=== PATIENT | male | born 1945 | race Caucasian/White ===

== ENCOUNTER → 2020-09-05 10:15 | Outpatient (CLI) | payer MEDICARE, SELFPAY ==
[2020-09-05 10:24] LABS: Chloride 99 mmol/L (98-107); Potassium 4.9 mmoL/L (3.5-5.1); Sodium 139 mmol/L (136-145)
[2020-09-05 10:26] LABS: Basophils # 0.1 K/mm3 (0-0.2); Basophils % 0.6 % (0.1-2.0); Eosinophils # 1.7 K/mm3 (0.0-0.4); Eosinophils % 20.6 % (0.1-12.0); Hemoglobin 11.8 g/dL (14.1-18.0); Lymphocytes # 1.1 K/mm3 (0.7-4.5); Lymphocytes % 13.4 % (10-50); Mean Corpuscular HGB Conc 31.8 g/dL (31.8-35.4); Mean Corpuscular Hemoglobin 29.7 pg (27.0-31.2); Mean Corpuscular Volume 93.4 fl (80-94); Mean Platelet Volume 7.5 fl (7.4-10.4); Monocytes # 0.6 K/mm3 (0.1-1.0); Monocytes % 6.9 % (1.7-9.3); Neutrophils # 4.9 K/mm3 (1.8-7.8); Neutrophils % 58.5 % (37.0-80.0); Platelet Count 184 K/mm3 (142-424); Red Blood Count 3.96 M/mm3 (4.60-6.20); Red Cell Distribution Width 15.1 % (11.5-17.5); White Blood Count 8.3 K/mm3 (4.8-10.8)
[2020-09-05 10:27] LABS: Alanine Aminotransferase 23 U/L (12-78); Albumin/Globulin Ratio 1.1 (1.1-1.8); Alkaline Phosphatase 100 U/L (38-126); Anion Gap 8.9 mEq/L (5-15); Aspartate Amino Transferase 26 U/L (17-59); Bilirubin,Total 0.4 mg/dl (0.2-1.3); Blood Urea Nitrogen 37 mg/dl (9-20); Calcium 9.7 mg/dl (8.4-10.2); Carbon Dioxide 36 mmol/L (22.0-30.0); Estimated Glomerular Filt Rate 49 ml/min (>60); GFR (African American) 60 ML/MIN (>60); Globulin 3.8 g/dL (1.3-3.2); Glucose 113 mg/dl (74-100); Total Protein,Serum 7.8 g/dl (6.3-8.2)
--- NOTE | 2020-09-05 10:40 | CT_ITS ---
PROCEDURE: CT ANGIO CHEST CLINCIAL INDICATION: r/o PE Emphysema, shortness of air COMPARISON: No exams were available for comparison TECHNIQUE: IV Contrast: 70ML Isovue 370 Axial images obtained with sagittal and coronal reformats. All CT scans at the facility use one or more dose reduction, viz: automated exposure control, ma/kV adjustment per patient size (including targeted exams where dose is matched to indication, i.e. head), or iterative reconstruction technique. FINDINGS: No mediastinal or hilar mass or adenopathy. No evidence of pulmonary embolus, aortic aneurysm, or aortic dissection.. Atheromatous calcification involves the thoracic aorta with mild tortuosity. No aneurysm or dissection. COPD changes with centrilobular emphysema and scattered areas of scarring. There is bronchial thickening. A 4 mm noncalcified nodules present in the right lower lobe posteriorly image 81. Atelectatic changes are present in the right middle lobe. Thickening of the right minor fissure noted. Small pneumatocele present in the right middle lobe anteriorly at 2 x 0.9 x 0.5 cm. No lobar consolidation or collapse. No central obstructing lesions. There is a 2 cm hypodensity in the right hepatic lobe just medial to the gallbladder fossa and may represent a hepatic cyst. Incidental note is made of gynecomastia. There is mild dilatation of the abdominal aorta incompletely imaged measuring at least 3.2 cm transverse with mild amount of mural thrombus. This is in the infrarenal region. Wedge compression changes involve T8 and T7 with loss of height anteriorly of 30 percent age indeterminate. IMPRESSION: 1. No evidence of pulmonary embolus. 2. COPD with centrilobular emphysema with scattered areas of atelectasis and/or scarring and bronchial thickening. 4 mm noncalcified nodule right lower lobe. 3. Incompletely imaged infrarenal abdominal aortic aneurysm at least 3.2 cm transverse 4. Mild wedge compression changes of T7 and T8 age indeterminate Dictated by: Wally Hernandez MD 09/05/2020 12:56 Wally Hernandez MD in [facility] 09/05/2020 12:56
[2020-09-05 10:44] LABS: Hemoglobin A1C 5.8 % (4.0-6.0)
[2020-09-05 10:45] LABS: Chol/HDL Ratio 5.6 (1-3.5); Cholesterol 207 mg/dl (140-200); HDL Cholesterol 37 mg/dl (40-60); Triglycerides 277 mg/dl (30-150); VLDL Cholesterol 55 mg/dL (0-40)
[2020-09-05 10:55] LABS: Direct LDL Cholesterol 105.27 mg/dL (100-129)
[2020-09-05 11:37] LABS: T4 (Thyroxine) 9.6 ug/dl (5.53-11.0)
[2020-09-05 11:50] LABS: Prostate Specific Ag Screen 2.1 ng/ml (0.0-4.0); Thyroid Stimulating Hormone 4.57 uIU/mL (0.465-4.68)
[2020-09-12 11:33] LABS: Testosterone, Total, LC/MS 230.3 ng/dL (264.0-916.0); Testosterone,Free 3.1 pg/mL (6.6-18.1)
== END ==
LOC: LAB.DROPOF 10:15 → RAD 10:38
PROVIDERS: PCP Family Medicine; Visit Provider Family Medicine
DX: R06.00 Dyspnea, unspecified (principal); R60.0 Localized edema; E78.5 Hyperlipidemia, unspecified; E11.9 Type 2 diabetes mellitus without complications; Z12.5 Encounter for screening for malignant neoplasm of prostate
CPT/HCPCS: 71275; 80053; 80061; 83036; 84402; 84403; 84436; 84443; 85025; G0103; Q9967

== ENCOUNTER → 2020-09-11 14:35 | Outpatient (CLI) | payer MEDICARE, SELFPAY ==
[2020-09-11 16:06] LABS: Chloride 98 mmol/L (98-107); Sodium 141 mmol/L (136-145)
[2020-09-11 16:07] LABS: Basophils # 0.1 K/mm3 (0-0.2); Basophils % 0.8 % (0.1-2.0); Eosinophils % 21.6 % (0.1-12.0); Hematocrit 36.3 % (42.0-52.0); Hemoglobin 11.6 g/dL (14.1-18.0); Lymphocytes # 1.1 K/mm3 (0.7-4.5); Lymphocytes % 11.8 % (10-50); Mean Corpuscular Hemoglobin 29.3 pg (27.0-31.2); Mean Corpuscular Volume 91.7 fl (80-94); Mean Platelet Volume 9.4 fl (7.4-10.4); Monocytes # 0.7 K/mm3 (0.1-1.0); Monocytes % 7.4 % (1.7-9.3); Neutrophils # 5.5 K/mm3 (1.8-7.8); Neutrophils % 58.4 % (37.0-80.0); Platelet Count 202 K/mm3 (142-424); Potassium 4.6 mmoL/L (3.5-5.1); Red Blood Count 3.95 M/mm3 (4.60-6.20); Red Cell Distribution Width 15.2 % (11.5-17.5); White Blood Count 9.4 K/mm3 (4.8-10.8)
[2020-09-11 16:09] LABS: Alanine Aminotransferase 22 U/L (12-78); Albumin Level 4.1 g/dl (3.5-5.0); Albumin/Globulin Ratio 1.1 (1.1-1.8); Alkaline Phosphatase 93 U/L (38-126); Anion Gap 10.6 mEq/L (5-15); Aspartate Amino Transferase 25 U/L (17-59); Bilirubin,Total 0.4 mg/dl (0.2-1.3); Blood Urea Nitrogen 67 mg/dl (9-20); Carbon Dioxide 37 mmol/L (22.0-30.0); Cholesterol 223 mg/dl (140-200); Estimated Glomerular Filt Rate 29 ml/min (>60); GFR (African American) 35 ML/MIN (>60); Globulin 3.7 g/dL (1.3-3.2); Total Protein,Serum 7.8 g/dl (6.3-8.2); Triglycerides 268 mg/dl (30-150); VLDL Cholesterol 54 mg/dL (0-40)
[2020-09-11 16:10] LABS: Calcium 9.7 mg/dl (8.4-10.2); Glucose 119 mg/dl (74-100); HDL Cholesterol 43 mg/dl (40-60)
[2020-09-11 16:20] LABS: NT Pro Brain Natriuretic Pep. 121 pg/mL (0-450)
[2020-09-11 16:40] LABS: Thyroid Stimulating Hormone 6.13 uIU/mL (0.465-4.68)
[2020-09-11 19:13] LABS: Chol/HDL Ratio 5.2 (1-3.5)
== END ==
PROVIDERS: Visit Provider Family Medicine
DX: I50.9 Heart failure, unspecified (principal)
CPT/HCPCS: 80053; 80061; 83880; 84436; 84443; 85025

== ENCOUNTER → 2020-10-23 13:50 | Outpatient (CLI) | payer MEDICARE, SELFPAY ==
[2020-10-23 14:04] LABS: Chloride 100 mmol/L (98-107); Sodium 139 mmol/L (136-145)
[2020-10-23 14:05] LABS: Potassium 4.6 mmoL/L (3.5-5.1)
[2020-10-23 14:07] LABS: Alanine Aminotransferase 22 U/L (12-78); Albumin Level 3.9 g/dl (3.5-5.0); Albumin/Globulin Ratio 1.1 (1.1-1.8); Alkaline Phosphatase 96 U/L (38-126); Anion Gap 12.6 mEq/L (5-15); Aspartate Amino Transferase 25 U/L (17-59); Bilirubin,Total 0.6 mg/dl (0.2-1.3); Blood Urea Nitrogen 42 mg/dl (9-20); Calcium 9.5 mg/dl (8.4-10.2); Carbon Dioxide 31 mmol/L (22.0-30.0); Estimated Glomerular Filt Rate 46 ml/min (>60); GFR (African American) 55 ML/MIN (>60); Globulin 3.5 g/dL (1.3-3.2); Glucose 111 mg/dl (74-100); Total Protein,Serum 7.4 g/dl (6.3-8.2)
== END ==
PROVIDERS: Visit Provider Family Medicine
DX: N28.9 Disorder of kidney and ureter, unspecified (principal)
CPT/HCPCS: 80053

== ENCOUNTER → 2020-12-01 14:35 | Outpatient (CLI) | payer MEDICARE, SELFPAY ==
[2020-12-01 14:46] LABS: Basophils # 0.1 K/mm3 (0-0.2); Basophils % 0.7 % (0.1-2.0); Eosinophils # 1.1 K/mm3 (0.0-0.4); Eosinophils % 13.9 % (0.1-12.0); Hematocrit 35.1 % (42.0-52.0); Hemoglobin 11.4 g/dL (14.1-18.0); Lymphocytes # 0.8 K/mm3 (0.7-4.5); Lymphocytes % 9.5 % (10-50); Mean Corpuscular HGB Conc 32.5 g/dL (31.8-35.4); Mean Corpuscular Hemoglobin 29.4 pg (27.0-31.2); Mean Corpuscular Volume 90.4 fl (80-94); Mean Platelet Volume 8.6 fl (7.4-10.4); Monocytes # 0.5 K/mm3 (0.1-1.0); Monocytes % 6.4 % (1.7-9.3); Neutrophils # 5.5 K/mm3 (1.8-7.8); Neutrophils % 69.5 % (37.0-80.0); Platelet Count 176 K/mm3 (142-424); Red Blood Count 3.88 M/mm3 (4.60-6.20); Red Cell Distribution Width 15.7 % (11.5-17.5); White Blood Count 7.9 K/mm3 (4.8-10.8)
[2020-12-01 14:55] LABS: Alanine Aminotransferase 17 U/L (12-78); Albumin/Globulin Ratio 1.3 (1.1-1.8); Alkaline Phosphatase 76 U/L (38-126); Anion Gap 9.9 mEq/L (5-15); Aspartate Amino Transferase 19 U/L (17-59); Bilirubin,Total 0.5 mg/dl (0.2-1.3); Blood Urea Nitrogen 68 mg/dl (9-20); Calcium 8.8 mg/dl (8.4-10.2); Carbon Dioxide 34 mmol/L (22.0-30.0); Chloride 95 mmol/L (98-107); Estimated Glomerular Filt Rate 24 ml/min (>60); GFR (African American) 29 ML/MIN (>60); Globulin 3.1 g/dL (1.3-3.2); Glucose 106 mg/dl (74-100); Potassium 5.9 mmoL/L (3.5-5.1); Sodium 133 mmol/L (136-145); Total Protein,Serum 7.1 g/dl (6.3-8.2)
[2020-12-01 15:25] LABS: Thyroid Stimulating Hormone 2.91 uIU/mL (0.465-4.68)
== END ==
PROVIDERS: Visit Provider Family Medicine
DX: R60.9 Edema, unspecified (principal); I71.9 Aortic aneurysm of unspecified site, without rupture
CPT/HCPCS: 80053; 84443; 85025

== ENCOUNTER → 2021-03-16 17:22 | Outpatient (CLI) | payer MEDICARE, SELFPAY ==
[2021-03-16 19:06] LABS: Chloride 97 mmol/L (98-107); Potassium 5.4 mmoL/L (3.5-5.1); Sodium 135 mmol/L (136-145)
[2021-03-16 19:09] LABS: Alanine Aminotransferase 20 U/L (12-78); Albumin Level 3.9 g/dl (3.5-5.0); Albumin/Globulin Ratio 1.1 (1.1-1.8); Alkaline Phosphatase 86 U/L (38-126); Anion Gap 13.4 mEq/L (5-15); Aspartate Amino Transferase 22 U/L (17-59); Bilirubin,Total 0.3 mg/dl (0.2-1.3); Blood Urea Nitrogen 22 mg/dl (9-20); Carbon Dioxide 30 mmol/L (22.0-30.0); Estimated Glomerular Filt Rate 49 ml/min (>60); GFR (African American) 60 ML/MIN (>60); Globulin 3.5 g/dL (1.3-3.2); Total Protein,Serum 7.4 g/dl (6.3-8.2)
[2021-03-16 19:10] LABS: Calcium 9.1 mg/dl (8.4-10.2); Glucose 90 mg/dl (74-100)
[2021-03-16 19:39] LABS: Thyroid Stimulating Hormone 1.37 uIU/mL (0.465-4.68)
== END ==
PROVIDERS: Visit Provider Family Medicine
DX: R60.9 Edema, unspecified (principal); R60.0 Localized edema
CPT/HCPCS: 80053; 84443

== ENCOUNTER → 2021-04-13 13:47 | Outpatient (CLI) | payer MEDICARE, SELFPAY ==
[2021-04-13 14:12] LABS: Chloride 99 mmol/L (98-107); Sodium 138 mmol/L (136-145)
[2021-04-13 14:13] LABS: Potassium 5.9 mmoL/L (3.5-5.1)
[2021-04-13 14:15] LABS: Alanine Aminotransferase 24 U/L (12-78); Anion Gap 17.9 mEq/L (5-15); Aspartate Amino Transferase 28 U/L (17-59); Bilirubin,Total 0.5 mg/dl (0.2-1.3); Blood Urea Nitrogen 63 mg/dl (9-20); Carbon Dioxide 27 mmol/L (22.0-30.0); Estimated Glomerular Filt Rate 24 ml/min (>60); GFR (African American) 29 ML/MIN (>60)
[2021-04-13 14:16] LABS: Albumin Level 4.2 g/dl (3.5-5.0); Albumin/Globulin Ratio 1.2 (1.1-1.8); Alkaline Phosphatase 86 U/L (38-126); Calcium 9.2 mg/dl (8.4-10.2); Globulin 3.6 g/dL (1.3-3.2); Glucose 101 mg/dl (74-100); Total Protein,Serum 7.8 g/dl (6.3-8.2)
== END ==
PROVIDERS: Visit Provider Family Medicine
DX: R60.1 Generalized edema (principal)
CPT/HCPCS: 80053

== ENCOUNTER → 2021-06-26 12:46 | Outpatient (CLI) | payer MEDICARE, SELFPAY | PROVIDERS: Visit Provider Family Medicine | DX: B96.5 Pseudomonas (aeruginosa) (mallei) (pseudomallei) as the cause of diseases classified elsewhere; M54.50 Low back pain, unspecified; R82.90 Unspecified abnormal findings in urine | CPT/HCPCS: 87086; 87088; 87186 ==

== ENCOUNTER → 2021-07-02 09:39 | Outpatient (CLI) | payer MEDICARE, SELFPAY ==
--- NOTE | 2021-07-02 09:50 | XR_ITS ---
PROCEDURE: XR CHEST 2V CLINICAL HISTORY: pain COMPARISON: CT CT ANGIO CHEST from 09/05/2020 FINDINGS: The cardiomediastinal silhouette and pulmonary vascularity are within normal limits. COPD with scattered areas of scarring. No lobar consolidation or collapse. Chronic wedge compression changes are present T7 and T8. New central wedge compression changes are present at T9. IMPRESSION: COPD. Scattered areas of scarring. New area wedge compression change of T9 which has developed since 09/05/2020 with chronic wedge compression changes of T7 and T8 Dictated by: Wally Hernandez MD 07/02/2021 17:12 Wally Hernandez MD in [facility] 07/02/2021 17:12
--- NOTE | 2021-07-02 09:50 | XR_ITS ---
PROCEDURE: XR THORACIC SPINE 2V CLINICAL INDICATION: back pain COMPARISON: CT CT ANGIO CHEST from 09/05/2020 FINDINGS: Minimal upper thoracic curvature convex right. There is minimal anterior wedging of T7 and T8 vertebral body which appears old. Mild central wedge compression fractures are present at T9 which were not present on 09/05/2020. There is normal alignment. No lytic or blastic change. IMPRESSION: Chronic compression changes T7 and T8 with new compression changes at T9. No obvious retropulsion the the Dictated by: Wally Hernandez MD 07/02/2021 17:06 Wally Hernandez MD in [facility] 07/02/2021 17:06
--- NOTE | 2021-07-02 09:50 | XR_ITS ---
PROCEDURE: XR LUMBAR SPINE 2-3V CLINICAL INDICATION: back pain COMPARISON: CT CT ANGIO CHEST from 09/05/2020 FINDINGS: Generalized osteopenia. Approximately 30 percent wedge compression changes involving the L2 vertebral body which did appear to be present on an older chest CT. Degenerative disc disease L2-L3, L3-L4 and L5-S1. Anterior osteophytes are present. 7 mm anterolisthesis of L5 on S1. Diffuse vascular calcification. IMPRESSION: Degenerative changes. A wedge compression changes of L2. Dictated by: Wally Hernandez MD 07/02/2021 11:09 Wally Hernandez MD in [facility] 07/02/2021 11:09
--- NOTE | 2021-07-02 09:50 | US_ITS ---
PROCEDURE: US AORTA CLINICAL INDICATION: abdominal aortic aneurysm COMPARISON: CT CT ANGIO CHEST from 09/05/2020 FINDINGS: The study is very limited technically due to patient's body habitus. The aorta is poorly demonstrated measuring up to 2.7 cm in AP dimension. Transverse dimension is approximately 3 cm. Proximal common iliacs are unremarkable. IMPRESSION: Very limited technically due to patient's body habitus. Mild ectasia of the abdominal aorta. CT would provide more thorough evaluation Dictated by: Wally Hernandez MD 07/02/2021 16:42 Wally Hernandez MD in [facility] 07/02/2021 16:42
== END ==
PROVIDERS: PCP Family Medicine; Visit Provider Family Medicine
DX: M54.9 Dorsalgia, unspecified (principal); I71.9 Aortic aneurysm of unspecified site, without rupture; M54.6 Pain in thoracic spine; M54.50 Low back pain, unspecified
CPT/HCPCS: 71046; 72070; 72100; 76770

== ENCOUNTER → 2021-07-27 17:01 | Outpatient (CLI) | payer MEDICARE, SELFPAY | PROVIDERS: Visit Provider Family Medicine | DX: R52 Pain, unspecified (principal); L03.313 Cellulitis of chest wall | CPT/HCPCS: 87070; 87205 ==

== ENCOUNTER 2021-08-06 08:25 | Outpatient (RCR) | payer MEDICARE, SELFPAY ==
--- NOTE | 2021-08-06 10:02 | [facility].PTOPWND ---
Rehab Outpt Wound Evaluation Rehab OP Wound Evaluation Start: 08/06/21 09:49 Freq: Status: Active Protocol: Document 08/06/21 09:49 CHELY (Rec: 08/06/21 10:02 CHELY [id number]) Electronically Signed By Hugh Thomas, PT 08/06/21 09:49 Subjective/History History History This is the initial wound care evaluation for Matt Umanzor. Pt is a 76 y/o male referred to wound care for non-healing R anterior chest wound. Pt reports he was hospitalized from 07/04/21 to 07/14/21 due to carbondioxide retention and AMS. Pt's reports after pt came home she noticed irritation on anterior R chest . Pt states they went to doctor and was told it was a staph infection Pt states he was given ABX for treatment. Subjective Subjective Pt states he is receiving home health services and therefore is not eligible for outpatient treatment Wound Eval Wound Right Upper Anterior Chest Wound Type Abrasion Is This a Chronic Wound Yes Wound Length (cm) 3 Wound Width (cm) 5 Wound Bed Appearance Beefy Red,Yellow Percentage Granulated (%) 50 Percentage of Slough (%) 50 Percentage of Eschar (Yellow) (%) 50 Primary Dressing Silver Dressing Comment tegederm ag mesh Wound Secondary Dressing Type Absorbant Pad Comment optifoam SA Wound Debridement Method Gauze,Mechanical Wound Debridement Amount of Tissue Minimal Removed Wound Debridement Result Stopped Due to Bleeding Dressing Change Date 08/06/21 Dressing Change Patient Tolerance Tolerated Well Wound Problems/Impairments Impairments Problems/Impairmments Wound Care Needs,Impaired Self Care/Self Management Prognosis Rehab Potential Good Clinical Impression Consistent with Diagnosis Yes Short Term Goals Number of Weeks 1 Patient to be Ind w/ Home Wound Care/ Yes: Pt given home supplies Dressing Changes Outpatient Therapy Plan of Care Treatment Plan May Include Wound Care Yes Frequency Times per week 1 Duration Number of Weeks 1 Addendums This patient is a candidate for social No or v
== END 2021-08-06 08:30 | disposition home or self-care (01) ==
LOC: PT 08:25
PROVIDERS: PCP Family Medicine; Visit Provider Family Medicine
DX: L03.313 Cellulitis of chest wall (principal)
CPT/HCPCS: 97162

== ENCOUNTER → 2021-12-21 14:17 | Outpatient (CLI) | payer MEDICARE, SELFPAY ==
[2021-12-21 14:14] LABS: Basophils # 0.1 K/mm3 (0-0.2); Basophils % 1.2 % (0.1-2.0); Eosinophils # 0.5 K/mm3 (0.0-0.4); Eosinophils % 8.9 % (0.1-12.0); Hematocrit 39.3 % (42.0-52.0); Hemoglobin 12.6 g/dL (14.1-18.0); Lymphocytes # 0.5 K/mm3 (0.7-4.5); Lymphocytes % 8.8 % (10-50); Mean Corpuscular HGB Conc 31.9 g/dL (31.8-35.4); Mean Corpuscular Volume 87.9 fl (80-94); Mean Platelet Volume 9.9 fl (7.4-10.4); Monocytes # 0.5 K/mm3 (0.1-1.0); Monocytes % 8.1 % (1.7-9.3); Neutrophils # 4.2 K/mm3 (1.8-7.8); Platelet Count 205 K/mm3 (142-424); Red Blood Count 4.48 M/mm3 (4.60-6.20); Red Cell Distribution Width 17.1 % (11.5-17.5); White Blood Count 5.8 K/mm3 (4.8-10.8)
[2021-12-21 14:21] LABS: Alanine Aminotransferase 370 U/L (12-78); Albumin Level 3.7 g/dl (3.5-5.0); Albumin/Globulin Ratio 1.1 (1.1-1.8); Alkaline Phosphatase 123 U/L (38-126); Anion Gap 10.6 mEq/L (5-15); Aspartate Amino Transferase 304 U/L (17-59); Bilirubin,Total 0.6 mg/dl (0.2-1.3); Blood Urea Nitrogen 42 mg/dl (9-20); Carbon Dioxide 33 mmol/L (22.0-30.0); Chloride 99 mmol/L (98-107); Estimated Glomerular Filt Rate 31 ml/min (>60); GFR (African American) 37 ML/MIN (>60); Globulin 3.3 g/dL (1.3-3.2); Glucose 107 mg/dl (74-100); Potassium 3.6 mmoL/L (3.5-5.1); Sodium 139 mmol/L (136-145)
[2021-12-21 14:37] LABS: T4 (Thyroxine) 22.8 ug/dl (5.53-11.0)
[2021-12-21 14:50] LABS: Prostate Specific Ag Screen 2.9 ng/ml (0.0-4.0); Thyroid Stimulating Hormone 0.37 uIU/mL (0.465-4.68)
[2021-12-21 17:06] LABS: 25-OH Vitamin D, Total 24.6 ng/mL (30-100)
[2021-12-21 17:08] LABS: Hemoglobin A1C 5.7 % (4.0-6.0)
[2021-12-24 14:36] LABS: C-Peptide 5.2 ng/mL (1.1-4.4)
== END ==
PROVIDERS: Visit Provider Family Medicine
DX: Z00.00 Encounter for general adult medical examination without abnormal findings (principal); R60.9 Edema, unspecified; I71.9 Aortic aneurysm of unspecified site, without rupture; Z12.5 Encounter for screening for malignant neoplasm of prostate; E55.9 Vitamin D deficiency, unspecified; Z79.899 Other long term (current) drug therapy
CPT/HCPCS: 80053; 82306; 83036; 84436; 84443; 84681; 85025; G0103

== ENCOUNTER → 2022-01-11 07:31 | Outpatient (CLI) | payer MEDICARE, SELFPAY ==
[2022-01-10 17:48] LABS: Free T4 (Free Thyroxine) 3.21 ng/dl (0.78-2.19)
[2022-01-10 20:38] LABS: T4 (Thyroxine) 19.9 ug/dl (5.53-11.0)
[2022-01-10 21:11] LABS: Chloride 101 mmol/L (98-107); Sodium 139 mmol/L (136-145)
[2022-01-10 21:12] LABS: Potassium 4.5 mmoL/L (3.5-5.1)
[2022-01-10 21:14] LABS: Alanine Aminotransferase 107 U/L (12-78); Alkaline Phosphatase 118 U/L (38-126); Aspartate Amino Transferase 75 U/L (17-59); Bilirubin,Total 0.7 mg/dl (0.2-1.3); Blood Urea Nitrogen 39 mg/dl (9-20); Estimated Glomerular Filt Rate 29 ml/min (>60); GFR (African American) 35 ML/MIN (>60)
[2022-01-10 21:15] LABS: Albumin Level 3.7 g/dl (3.5-5.0); Albumin/Globulin Ratio 1.2 (1.1-1.8); Anion Gap 11.5 mEq/L (5-15); Calcium 9.4 mg/dl (8.4-10.2); Carbon Dioxide 31 mmol/L (22.0-30.0); Globulin 3.1 g/dL (1.3-3.2); Glucose 105 mg/dl (74-100); Total Protein,Serum 6.8 g/dl (6.3-8.2)
== END ==
PROVIDERS: PCP Family Medicine; Visit Provider Family Medicine
DX: E78.5 Hyperlipidemia, unspecified (principal); R60.9 Edema, unspecified; E03.9 Hypothyroidism, unspecified
CPT/HCPCS: 80053; 84436; 84439; 84443

== ENCOUNTER → 2022-01-24 07:38 | Outpatient (CLI) | payer MEDICARE, SELFPAY ==
--- NOTE | 2022-01-24 07:38 | US_ITS ---
FINAL REPORT CLINICAL HISTORY: elevated liver enzymes FINDINGS: ULTRASOUND RIGHT UPPER QUADRANT Sonographic imaging of the right upper quadrant was obtained. The pancreas is partially obscured. The liver has increased echogenicity consistent with fatty infiltration. There appears to be a 1.6 cm cyst in the medial right liver lobe, probably due to a benign cyst. There is no evidence of gallstones. There is no gallbladder wall thickening. There is no biliary ductal dilatation. The common duct is normal at 4 mm. Limited images of the right kidney are unremarkable. IMPRESSION: Fatty liver. Simple cyst right middle liver lobe. Reviewed, Interpreted and Dictated by Sharad Oropeza MD Transcribed by Gabby Díaz Authenticated and . [facility]
== END ==
PROVIDERS: PCP Family Medicine; Visit Provider Family Medicine
DX: R74.8 Abnormal levels of other serum enzymes (principal)
CPT/HCPCS: 76705

== ENCOUNTER → 2022-11-25 23:21 | Outpatient (CLI) | payer MEDICARE, SELFPAY ==
[2022-11-25 19:20] LABS: Thyroid Stimulating Hormone 2.65 uIU/mL (0.465-4.68)
[2022-11-25 20:37] LABS: Free T4 (Free Thyroxine) 2.92 ng/dl (0.78-2.19)
== END ==
PROVIDERS: PCP Family Medicine; Visit Provider Family Medicine
DX: F41.9 Anxiety disorder, unspecified (principal)
CPT/HCPCS: 84439; 84443

== ENCOUNTER → 2023-02-26 21:46 | Outpatient (CLI) | payer MEDICARE, SELFPAY ==
[2023-02-26 18:58] LABS: Basophils % 0.3 % (0.1-2.0); Eosinophils # 1.2 K/mm3 (0.0-0.4); Eosinophils % 15.7 % (0.1-12.0); Hematocrit 40.4 % (42.0-52.0); Hemoglobin 12.6 g/dL (14.1-18.0); Lymphocytes # 0.7 K/mm3 (0.7-4.5); Lymphocytes % 9.2 % (10-50); Mean Corpuscular HGB Conc 31.1 g/dL (31.8-35.4); Mean Corpuscular Hemoglobin 28.9 pg (27.0-31.2); Mean Platelet Volume 8.4 fl (7.4-10.4); Monocytes # 0.5 K/mm3 (0.1-1.0); Monocytes % 6.4 % (1.7-9.3); Neutrophils # 5.3 K/mm3 (1.8-7.8); Neutrophils % 68.4 % (37.0-80.0); Platelet Count 192 K/mm3 (142-424); Red Blood Count 4.35 M/mm3 (4.60-6.20); White Blood Count 7.7 K/mm3 (4.8-10.8)
[2023-02-26 19:05] LABS: Alanine Aminotransferase 21 U/L (12-78); Albumin Level 4.2 g/dl (3.5-5.0); Albumin/Globulin Ratio 1.2 (1.1-1.8); Alkaline Phosphatase 125 U/L (38-126); Anion Gap 16.4 mEq/L (5-15); Aspartate Amino Transferase 27 U/L (17-59); Bilirubin,Total 0.5 mg/dl (0.2-1.3); Blood Urea Nitrogen 32 mg/dl (9-20); Calcium 9.2 mg/dl (8.4-10.2); Carbon Dioxide 27 mmol/L (22.0-30.0); Chloride 103 mmol/L (98-107); Estimated Glomerular Filt Rate 33 ml/min (>60); GFR (African American) 39 ML/MIN (>60); Globulin 3.6 g/dL (1.3-3.2); Glucose 102 mg/dl (74-100); HDL Cholesterol 41 mg/dl (40-60); Potassium 4.4 mmoL/L (3.5-5.1); Sodium 142 mmol/L (136-145); Total Protein,Serum 7.8 g/dl (6.3-8.2); Triglycerides 282 mg/dl (30-150); VLDL Cholesterol 56 mg/dL (0-40)
[2023-02-26 19:12] LABS: Chol/HDL Ratio 7.9 (1-3.5); Cholesterol 322 mg/dl (140-200)
[2023-02-26 19:15] LABS: Direct LDL Cholesterol 176.01 mg/dL (100-129)
[2023-02-26 19:35] LABS: Prostate Specific Ag Screen 3.5 ng/ml (0.0-4.0)
== END ==
PROVIDERS: PCP Family Medicine; Visit Provider Family Medicine
DX: F41.9 Anxiety disorder, unspecified (principal); Z12.5 Encounter for screening for malignant neoplasm of prostate; E03.9 Hypothyroidism, unspecified; N18.32 Chronic kidney disease, stage 3b; S69.91XA Unspecified injury of right wrist, hand and finger(s), initial encounter
CPT/HCPCS: 80053; 80061; 84443; 85025; G0103

== ENCOUNTER 2023-12-24 14:49 | Outpatient (CLI) | payer MEDICARE, SELFPAY ==
[2023-12-24 19:08] LABS: Basophils # 0.1 K/mm3 (0-0.2); Basophils % 1.3 % (0.1-2.0); Eosinophils # 0.2 K/mm3 (0.0-0.4); Eosinophils % 4.2 % (0.1-12.0); Hematocrit 31.4 % (42.0-52.0); Hemoglobin 9.4 g/dL (14.1-18.0); Lymphocytes # 0.5 K/mm3 (0.7-4.5); Lymphocytes % 9.7 % (10-50); Mean Corpuscular HGB Conc 30.1 g/dL (31.8-35.4); Mean Corpuscular Hemoglobin 29.3 pg (27.0-31.2); Mean Corpuscular Volume 97.5 fl (80-94); Mean Platelet Volume 8.8 fl (7.4-10.4); Monocytes # 0.4 K/mm3 (0.1-1.0); Monocytes % 9.2 % (1.7-9.3); Neutrophils # 3.6 K/mm3 (1.8-7.8); Neutrophils % 75.7 % (37.0-80.0); Platelet Count 308 K/mm3 (142-424); Red Blood Count 3.22 M/mm3 (4.60-6.20); White Blood Count 4.7 K/mm3 (4.8-10.8)
[2023-12-24 19:40] LABS: Alanine Aminotransferase 17 U/L (12-78); Albumin Level 3.5 g/dl (3.5-5.0); Albumin/Globulin Ratio 1.2 (1.1-1.8); Alkaline Phosphatase 80 U/L (38-126); Anion Gap 13.8 mEq/L (5-15); Aspartate Amino Transferase 23 U/L (17-59); Bilirubin,Total 0.5 mg/dl (0.2-1.3); Blood Urea Nitrogen 38 mg/dl (9-20); Calcium 9.1 mg/dl (8.4-10.2); Carbon Dioxide 31 mmol/L (22.0-30.0); Chloride 101 mmol/L (98-107); Estimated Glomerular Filt Rate 23 ml/min (>60); GFR (African American) 28 ML/MIN (>60); Globulin 2.9 g/dL (1.3-3.2); Glucose 96 mg/dl (74-100); Potassium 4.8 mmoL/L (3.5-5.1); Sodium 141 mmol/L (136-145); Total Protein,Serum 6.4 g/dl (6.3-8.2)
[2023-12-24 20:06] LABS: Thyroid Stimulating Hormone 2.37 uIU/mL (0.465-4.68)
== END 2023-12-24 23:59 | disposition home or self-care (01) ==
LOC: LAB.DROPOF 12-25 14:49
PROVIDERS: PCP Family Medicine; Visit Provider Family Medicine
DX: E07.9 Disorder of thyroid, unspecified (principal); E78.5 Hyperlipidemia, unspecified
CPT/HCPCS: 80050; 80053; 84443; 85025